=== PATIENT | female | born 1965 | race Caucasian/White ===

== ENCOUNTER → 2020-08-10 | Day surgery (SDC) | payer OTHER ==
[~2020-08-10] MED LIST: ASPIRIN EC81 MG PO; LIPITOR20 MG PO; MELATONIN2.5 MG PO; VENTOLIN HFA IN18 GM INH
== END | disposition home or self-care (01) ==
LOC: FAS 07:15
DX: Z12.11 Encounter for screening for malignant neoplasm of colon (principal); J45.909 Unspecified asthma, uncomplicated; E78.00 Pure hypercholesterolemia, unspecified; L93.0 Discoid lupus erythematosus; Z80.0 Family history of malignant neoplasm of digestive organs; Z15.89 Genetic susceptibility to other disease; Z83.71 Family history of colonic polyps; Z79.82 Long term (current) use of aspirin
CPT/HCPCS: J2250; J2704; J7120

== ENCOUNTER 2020-11-29 15:32 | Emergency (ER) | payer OTHER ==
[2020-11-29 17:25] LABS: BILIRUBIN NEGATIVE (NEGATIVE); BLOOD TRACE-LYSED Ery/uL (NEGATIVE); CLARITY CLEAR (CLEAR); COLOR YELLOW (YELLOW); GLUCOSE (U) NORMAL (NORMAL); LEUKOCYTES NEGATIVE Leu/uL (NEGATIVE); NITRITE NEGATIVE (NEGATIVE); PROTEIN NEGATIVE (NEGATIVE); SPECIFIC GRAVITY 1.025 (1.001-1.030); UROBILINOGEN 0.2 mg/dL (0.2-1.0); pH 6.5 (5.0-9.0)
[2020-11-29 17:30] LABS: SQUAMOUS EPITHELIAL CELLS RARE; URINARY RBC RARE
[2020-11-29 17:38] LABS: BASOPHIL 0.8 % (0-2); EOSINOPHIL 4.2 % (0-5); HCT 43.1 % (37.0-47.0); HGB 14.5 g/dl (12.5-16.0); MCH 31.5 pg (25.0-31.0); MCHC 33.6 g/dL (32.0-36.0); MCV 93.7 fL (78.0-100.0); MONOCYTE 8.6 % (0-12); MPV 10.4 fL (6.0-9.5); NEUTROPHIL 57.2 % (41-80); NRBC 0; PLT 189 K/uL (150-400); RDW 11.9 % (11.5-14.0)
[2020-11-29 18:03] LABS: ALBUMIN 4.3 g/dL (3.4-5.0); BILIRUBIN - TOTAL 0.3 mg/dL (0.2-1.0); BUN/CREAT RATIO (CALC) 19.6 RATIO; CREATININE 0.97 mg/dL (0.51-0.95); GLOBULIN (CALCULATION) 3.2 g/dL; POTASSIUM 4.2 mmol/L (3.5-5.1); TOTAL PROTEIN 7.5 g/dL (6.4-8.2)
[2020-11-29 18:11] LABS: PRO-BNP 72 pg/mL (<125)
== END 2020-11-29 19:53 | disposition home or self-care (01) ==
LOC: FER 15:32
PROVIDERS: Physician Assistant
DX: R00.2 Palpitations (principal); R00.0 Tachycardia, unspecified; R06.02 Shortness of breath; R07.89 Other chest pain; Z87.09 Personal history of other diseases of the respiratory system; Z98.890 Other specified postprocedural states
CPT/HCPCS: 36415; 71045; 71275; 80053; 81001; 83880; 84443; 84484; 85025; 85379; 93005; J7030; Q9967

== ENCOUNTER → 2021-05-21 | Day surgery (SDC) | payer OTHER ==
[~2021-05-21] VITALS: Ht 171.4 cm; Wt 68.0 kg
[~2021-05-21] MED LIST changes: +ASPIRIN325 M1 PO; +FLUTICASONE-SA1 EAC3 PO; +NORCO 5-325 TA1 EACH PO
[2021-05-21 10:15] LABS: HCG (URINE) SCREEN NEGATIVE (NEGATIVE)
[2021-05-21 11:05] LABS: HCT 43.8 % (37.0-47.0); HGB 14.5 g/dl (12.5-16.0); MCH 31.2 pg (25.0-31.0); MCHC 33.1 g/dL (32.0-36.0); MCV 94.2 fL (78.0-100.0); MPV 10.2 fL (6.0-9.5); RBC 4.65 M/uL (4.20-5.40); RDW 11.7 % (11.5-14.0); WBC 4.4 K/uL (4.0-10.5)
[2021-05-21 12:01] LABS: BILIRUBIN - TOTAL 0.5 mg/dL (0.2-1.0); BUN/CREAT RATIO (CALC) 15.9 RATIO; CREATININE 0.82 mg/dL (0.51-0.95); GLOBULIN (CALCULATION) 3.4 g/dL; POTASSIUM 5.1 mmol/L (3.5-5.1); TOTAL PROTEIN 7.4 g/dL (6.4-8.2)
== END | disposition home or self-care (01) ==
LOC: FAS 09:34
PROVIDERS: Orthopaedic Surgery
DX: S83.281A Other tear of lateral meniscus, current injury, right knee, initial encounter (principal); S83.241A Other tear of medial meniscus, current injury, right knee, initial encounter; X58.XXXA Exposure to other specified factors, initial encounter; E78.5 Hyperlipidemia, unspecified; L93.0 Discoid lupus erythematosus; J45.909 Unspecified asthma, uncomplicated; M17.11 Unilateral primary osteoarthritis, right knee
CPT/HCPCS: 36415; 71045; 80053; 84703; J1100; J1885; J2250; J2405; J2704; J3010; J7120

== ENCOUNTER 2021-07-12 12:54 | Emergency (ER) | payer OTHER ==
[2021-07-12 14:41] LABS: HCT 44.1 % (37.0-47.0); HGB 14.6 g/dl (12.5-16.0); MCH 31.2 pg (25.0-31.0); MCHC 33.1 g/dL (32.0-36.0); MCV 94.2 fL (78.0-100.0); MPV 10.4 fL (6.0-9.5); RBC 4.68 M/uL (4.20-5.40); WBC 3.3 K/uL (4.0-10.5)
[2021-07-12 14:58] LABS: BUN/CREAT RATIO (CALC) 23.1 RATIO; CREATININE 0.65 mg/dL (0.51-0.95); POTASSIUM 3.5 mmol/L (3.5-5.1)
[2021-07-12] MEDS ORDERED: MEDROL 4MG DOSEP4 MG PO (16:15)
[2021-07-12] MEDS ORDERED: ZOFRAN4 M1 PO (16:15)
== END 2021-07-12 18:05 | disposition home or self-care (01) ==
LOC: FER 12:54
PROVIDERS: Emergency Medicine
DX: U07.1 COVID-19 (principal); J45.909 Unspecified asthma, uncomplicated; Z23 Encounter for immunization
CPT/HCPCS: 36415; 71045; 71275; 80048; 84484; 85379; 93005; J7030; M0245; Q0245; Q9967